=== PATIENT | female | born 1985 | race Caucasian/White ===

== ENCOUNTER 2018-04-16 12:01 | Emergency (ER) | payer SELFPAY ==
[~2018-04-16] VITALS: Ht 160 cm; Wt 82.6 kg
[2018-04-16 12:09] VITALS: BP_SYST 121
[2018-04-16] MEDS ORDERED: IBUPROFEN 800 MG TABLET PO ONE (12:30)
[2018-04-16] MEDS ORDERED: IBUPROFEN 600 MG TABLET PO ONE (13:00)
[2018-04-16 13:15] VITALS: BP_SYST 118
== END 2018-04-16 13:15 | disposition home or self-care (01) ==
LOC: SED 12:01
DX: S39.012A Strain of muscle, fascia and tendon of lower back, initial encounter (principal); R03.0 Elevated blood-pressure reading, without diagnosis of hypertension; X58.XXXA Exposure to other specified factors, initial encounter; Y93.89 Activity, other specified; Y92.89 Other specified places as the place of occurrence of the external cause; Y99.8 Other external cause status
CPT/HCPCS: 71045; 99283